=== PATIENT | male | born 1970 | race Caucasian/White ===

== ENCOUNTER 2018-11-03 15:37 | Inpatient (IN) | payer OTHER, SELFPAY ==
[2018-11-03] VITALS (38 sets, daily range): BP systolic 117–153; BP diastolic 60–83; PULSE 48–83; RESP 14–24; TEMP 36.8–37; O2SAT 89–99
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
[2018-11-03 15:51] LABS: Abs Immature Grans 0.02 k/cumm (0.0-0.09); Absolute Basophil Count 0.02 k/cumm (0.0-0.2); Absolute Eosinophil Count 0.05 k/cumm (0.0-0.7); Absolute Lymphocyte Count 1.07 k/cumm (1.2-3.4); Absolute Monocyte Count 0.55 k/cumm (0.11-0.7); Absolute Neutrophil Count 5.69 k/cumm (1.2-6.7); Basophils % 0.3; Eosinophils % 0.7; HCT 41.4 % (40.0-50.0); HGB 14.2 g/dL (13.5-17.5); Immature Grans % 0.3; Lymphocytes % 14.5; Mean Corp. HGB Concentration 34.3 g/dL (32.0-36.0); Mean Corpuscular Hemoglobin 31.6 pg (27.0-33.0); Mean Platelet Volume 10.4 fL (8.0-11.0); Monocytes % 7.4; Neutrophils % 76.8; Platelet Count 193 x1000/uL (130-400); RBC Distribution Width 12.7 % (11.8-14.1)
[2018-11-03] MEDS: Omnipaque 350 MG/ML 100 ML BTL IJ (15:54)
[2018-11-03 16:09] LABS: PTT Activated 22.4 sec (21.0-31.4); Prothrombin Time 10.1 sec (9.3-11.0)
[2018-11-03 16:11] LABS: ALT 36 U/L (12-78); AST 33 U/L (15-37); Alkaline Phosphatase 72 U/L (46-116); BUN 14 mg/dL (7-18); Bilirubin, Total 0.7 mg/dL (0.2-1.0); Calcium 8.9 mg/dL (8.5-10.1); Chloride 103 mmol/L (98-107); Glucose 111 mg/dL (70-100); Lipase 117 U/L (73-393); Magnesium 1.9 mg/dL (1.8-2.4); Potassium 4.2 mmol/L (3.5-5.1); Sodium 139 mmol/L (136-145); Total Protein 7.4 g/dL (6.4-8.2)
[2018-11-03] MEDS: PIPERACILLIN/TAZO 4.5 GM in Normal Saline 100 ML IVPB (16:27)
[2018-11-03] MEDS: fentaNYL 100 MCG/2 ML VIAL 75 MCG IVP (16:27)
[2018-11-03] MEDS: Ketorolac 30 MG/ML VIAL IVP (19:42)
[2018-11-03] MEDS: Normal Saline Flush 10 ML SYR IVP (19:42)
[2018-11-03] MEDS: Acetaminophen 325 MG TAB 650 MG PO (19:43)
[2018-11-03] MEDS: CIPROFLOXACIN 400 MG/200 ML BAG 200 MG IVPB (19:43)
[2018-11-03] MEDS: Lactated Ringers 1,000 ML 75 ML IV (19:44)
[2018-11-03] MEDS: metroNIDAZOLE 500 MG/100 ML BAG 100 MG IVPB (20:58)
[2018-11-04] VITALS (13 sets, daily range): BP systolic 98–141; BP diastolic 49–79; PULSE 59–84; RESP 16–26; TEMP 36.5–37.9; O2SAT 89–98
[2018-11-04] MEDS: Ketorolac 30 MG/ML VIAL IVP ×3 (02:12→16:08)
[2018-11-04] MEDS: Acetaminophen 325 MG TAB 650 MG PO ×2 (02:13→09:28)
[2018-11-04] MEDS: metroNIDAZOLE 500 MG/100 ML BAG 100 MG IVPB ×4 (03:27→22:00)
[2018-11-04] MEDS: CIPROFLOXACIN 400 MG/200 ML BAG 200 MG IVPB ×2 (06:58→17:59)
[2018-11-04 08:27] LABS: Abs Immature Grans 0.04 k/cumm (0.0-0.09); Absolute Basophil Count 0.01 k/cumm (0.0-0.2); Absolute Lymphocyte Count 1.21 k/cumm (1.2-3.4); Absolute Monocyte Count 0.94 k/cumm (0.11-0.7); Basophils % 0.1; HCT 42.9 % (40.0-50.0); HGB 14.3 g/dL (13.5-17.5); Immature Grans % 0.3; Lymphocytes % 8.6; Mean Corp. HGB Concentration 33.3 g/dL (32.0-36.0); Mean Corpuscular Hemoglobin 30.7 pg (27.0-33.0); Mean Corpuscular Volume 92.1 fL (80-95); Mean Platelet Volume 10.5 fL (8.0-11.0); Monocytes % 6.7; Neutrophils % 84.3; Platelet Count 192 x1000/uL (130-400); RBC 4.66 m/cumm (4.50-6.00); White Blood Cell Count 14.06 k/cumm (4.4-10.8)
[2018-11-04 08:32] LABS: Absolute Neutrophil Count 11.85 k/cumm (1.2-6.7)
[2018-11-04] MEDS: Normal Saline Flush 10 ML SYR IVP ×4 (09:27→18:15)
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
[2018-11-04] MEDS: Lactated Ringers 1,000 ML 75 ML IV (13:19)
--- NOTE | 2018-11-04 16:07 | PDOC.CMIN ---
Care Management Initial Assess REASON FOR HOSPITALIZATION:: Pneumoperitoneum PAST MEDICAL HISTORY/PAST SURGICAL HISTORY:: None given PREVIOUS FUNCTIONAL STATUS/SOCIAL/FAMILY SUPPORTS:: Independent at baseline. Lives with his , Herminia, in [facility]. Works at a [employer]. CURRENT FUNCTIONAL STATUS:: Ambulating independently. ADVANCE DIRECTIVES:: None on file Has patient been provided with information about the portal?: No Did the patient sign up for the portal?: No CODE STATUS:: Full Code INSURANCE COVERAGE / FINANCIAL ISSUES:: [facility] CURRENT HOME/COMMUNITY SERVICES/EQUIPMENT:: None at this time PRIMARY CARE PHYSICIAN:: Out of the area POTENTIAL DISCHARGE NEEDS:: Follow up appointment with PCP PATIENT/FAMILY EDUCATION NEEDS:: Discharge instructions ANTICIPATED BARRIERS TO DISCHARGE:: None identified TRANSPORTATION:: , Herminia, will transport PLAN:: Edinson will return home when medically cleared for discharge. CM will continue to follow and address any service needs prior to discharge. Readmission - Within the Past 30 Days Yes or No: Y
[2018-11-04] MEDS: HYDROcodone 5/Acetaminophen 325 TAB PO (17:57)
--- NOTE | 2018-11-04 18:08 | DI.RAD_ITS ---
SYMPTOM/DIAGNOSIS: ABD AND CHEST PAIN FLAT AND UPRIGHT ABDOMEN, PA CHEST: The lungs are not well inflated. There is minimal basilar atelectasis. The heart size is at the upper limits of normal in size. No pneumothorax is seen. There is free air seen beneath both diaphragms, increasing when compared with the previous CT. There is some air seen in the hepatic flexure of the colon. There is no dilated small bowel. IMPRESSION: Increasing amount of free air. No bowel dilatation.
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
--- NOTE | 2018-11-04 20:03 | W.PM.PROGNOT ---
Date of Service Date of service: 11/04/18 Time of Service: 20:03 Assessment and Plan (1) Free intraperitoneal air: Current visit: Yes Status: Acute The patient's condition has worsened with increased pain and new fever. Acute abdominal series shows significant increased free air Advised laparotomy with repair/resection of perforated bowel, possible ostomy. Risks per consent. He agrees to proceed. Subjective Interval history since last seen: This evening after taking in clears liquids at about 1800, patient had increase in LLQ pain that radiated to his chest, back and shoulder. Pain worse than earlier today. Exam Narrative Exam Narrative: ALert Abdomen with generalized tenderness, moderately distended. Objective Objective Clinical Data: Abnormal lab results 11/04/18 Range/Units 08:12 WBC 14.06 H D (4.4-10.8) k/cumm Absolute Neutrophils 11.85 H (1.2-6.7) k/cumm Absolute Monocytes 0.94 H (0.11-0.7) k/cumm Vital Signs Temperature 99.0 F 11/04/18 19:40 Temperature Source Tympanic 11/04/18 19:40 Pulse 83 11/04/18 19:40 Pulse Rhythm Regular 11/04/18 07:45 Pulse 83 11/03/18 18:40 Respiratory Rate 17 11/04/18 19:40 Respiratory Effort Non-Labored 11/04/18 07:45 Respiratory Depth Normal 11/04/18 07:45 Respiratory Pattern Normal 11/04/18 07:45 Blood Pressure 136/78 11/04/18 19:40 Blood Pressure Mean 85 11/03/18 18:30 Blood Pressure Position Sitting 11/03/18 15:36 Pulse Oximetry 94 L 11/04/18 19:40 Oxygen Delivery Method Room Air 11/04/18 19:40 Oxygen Flow Rate 0 11/04/18 19:40 Pain Level 3 11/04/18 19:40 Comment 11/04/18 18:29 Intake & Output 11/03/18 11/04/18 11/04/18 23:59 11:59 23:59 Intake Total 392.5 / 392.5 1307.50 / 1307.50 Output Total 450 / 450 900 / 1525 625 / 1525 Balance -57.5 / -57.5 407.50 / -217.50 -625 / -217.50 Weight 202 lb 13.204 oz Intake: IV 392.5 / 392.5 1307.50 / 1307.50 Output: Urine 450 / 450 900 / 1525 625 / 1525 Other: Urine Color Straw Light Giovana Dark Giovana Urine Appearance Clear Clear Clear Urine Odor Normal Normal Comment CCRN Marleni notified Voiding Methods Urinal Urinal Urinal Laboratory Results WBC 14.06 k/cumm (4.4-10.8) H D 11/04/18 08:12 RBC 4.66 m/cumm (4.50-6.00) 11/04/18 08:12 Hgb 14.3 g/dL (13.5-17.5) 11/04/18 08:12 Hct 42.9 % (40.0-50.0) 11/04/18 08:12 MCV 92.1 fL (80-95) 11/04/18 08:12 MCH 30.7 pg (27.0-33.0) 11/04/18 08:12 MCHC 33.3 g/dL (32.0-36.0) 11/04/18 08:12 RDW 13.0 % (11.8-14.1) 11/04/18 08:12 Plt Count 192 x1000/uL (130-400) 11/04/18 08:12 MPV 10.5 fL (8.0-11.0) 11/04/18 08:12 Immature Gran % 0.3 11/04/18 08:12 Neutrophils % 84.3 11/04/18 08:12 Lymphocytes % 8.6 11/04/18 08:12 Monocytes % 6.7 11/04/18 08:12 Eosinophils % 0.0 11/04/18 08:12 Basophils % 0.1 11/04/18 08:12 Absolute Neutrophils 11.85 k/cumm (1.2-6.7) H 11/04/18 08:12 Absolute Lymphocytes 1.21 k/cumm (1.2-3.4) 11/04/18 08:12 Absolute Monocytes 0.94 k/cumm (0.11-0.7) H 11/04/18 08:12 Absolute Eosinophils 0.00 k/cumm (0.0-0.7) 11/04/18 08:12 Absolute Basophils 0.01 k/cumm (0.0-0.2) 11/04/18 08:12 PT 10.1 sec (9.3-11.0) 11/03/18 15:43 INR 1.0 (0.9-1.1) 11/03/18 15:43 APTT 22.4 sec (21.0-31.4) 11/03/18 15:43 Sodium 139 mmol/L (136-145) 11/03/18 15:43 Potassium 4.2 mmol/L (3.5-5.1) 11/03/18 15:43 Chloride 103 mmol/L (98-107) 11/03/18 15:43 Carbon Dioxide 29.0 mmol/L (21.0-32.0) 11/03/18 15:43 Anion Gap 7.0 mmol/L (3-11) 11/03/18 15:43 BUN 14 mg/dL (7-18) 11/03/18 15:43 Creatinine 1.10 mg/dL (0.70-1.30) 11/03/18 15:43 Estimated GFR/1.73 m2 >= 60.00 (mL/min/1.73m2) 11/03/18 15:43 Glucose 111 mg/dL (70-100) H 11/03/18 15:43 Calcium 8.9 mg/dL (8.5-10.1) 11/03/18 15:43 Magnesium 1.9 mg/dL (1.8-2.4) 11/03/18 15:43 Total Bilirubin 0.7 mg/dL (0.2-1.0) 11/03/18 15:43 AST 33 U/L (15-37) 11/03/18 15:43 ALT 36 U/L (12-78) 11/03/18 15:43 Alkaline Phosphatase 72 U/L (46-116) 11/03/18 15:43 Total Protein 7.4 g/dL (6.4-8.2) 11/03/18 15:43 Albumin 4.0 g/dL (3.4-5.0) 11/03/18 15:43 Lipase 117 U/L (73-393) 11/03/18 15:43
[2018-11-04] MEDS: Lactated Ringers 1,000 ML 30 ML IV ×2 (20:40→22:00)
[2018-11-04] MEDS: Bupivacaine 0.25% Pres-Free 30 ML VIAL (22:20)
[2018-11-05] VITALS (12 sets, daily range): BP systolic 108–144; BP diastolic 64–76; PULSE 54–83; RESP 17–18; TEMP 36.6–37.3; O2SAT 93–98
[2018-11-05] MEDS: metroNIDAZOLE 500 MG/100 ML BAG 100 MG IVPB ×3 (04:56→20:01)
[2018-11-05] MEDS: Normal Saline Flush 10 ML SYR IVP ×5 (05:52→16:11)
[2018-11-05] MEDS: CIPROFLOXACIN 400 MG/200 ML BAG 200 MG IVPB ×2 (05:52→18:24)
[2018-11-05 07:43] LABS: Abs Immature Grans 0.03 k/cumm (0.0-0.09); Absolute Lymphocyte Count 0.52 k/cumm (1.2-3.4); Absolute Monocyte Count 0.63 k/cumm (0.11-0.7); Absolute Neutrophil Count 14.99 k/cumm (1.2-6.7); HCT 38.8 % (40.0-50.0); Immature Grans % 0.2; Lymphocytes % 3.2; Mean Corp. HGB Concentration 33.5 g/dL (32.0-36.0); Mean Corpuscular Hemoglobin 31.2 pg (27.0-33.0); Mean Platelet Volume 10.7 fL (8.0-11.0); Monocytes % 3.9; Neutrophils % 92.7; Platelet Count 162 x1000/uL (130-400); RBC 4.17 m/cumm (4.50-6.00); RBC Distribution Width 13.2 % (11.8-14.1); White Blood Cell Count 16.17 k/cumm (4.4-10.8)
[2018-11-05] MEDS: Ketorolac 30 MG/ML VIAL IVP ×3 (09:13→22:27)
--- NOTE | 2018-11-05 10:50 | W.PM.PROGNOT ---
Date of Service Date of service: 11/05/18 Time of Service: 10:51 Assessment and Plan (1) S/P laparotomy: Current visit: Yes Status: Acute Generally doing well NG removed, ice chips okay Ambulation encouraged Will leave Caldwell for patient comfort, can DC when he is ready or tomorrow am Add fluconazole for small bowel perforation, will monitor with telemetry Cultures pending Subjective Interval history since last seen: Pain is improved from yesterday Notes sudden pain in throat from NG Exam Narrative Exam Narrative: Appears uncomfortable Lungs CTA but poor effort Heart RRR Abdomen with dry dressing Objective Objective Clinical Data: Abnormal lab results 11/05/18 Range/Units 07:05 WBC 16.17 H (4.4-10.8) k/cumm RBC 4.17 L (4.50-6.00) m/cumm Hgb 13.0 L (13.5-17.5) g/dL Hct 38.8 L (40.0-50.0) % Absolute Neutrophils 14.99 H (1.2-6.7) k/cumm Absolute Lymphocytes 0.52 L (1.2-3.4) k/cumm Vital Signs Temperature 98.6 F 11/05/18 07:50 Temperature Source Tympanic 11/05/18 07:50 Pulse 76 11/05/18 07:50 Pulse Rhythm Regular 11/04/18 19:35 Pulse 83 11/03/18 18:40 Respiratory Rate 17 11/05/18 07:50 Respiratory Effort Non-Labored 11/04/18 19:35 Respiratory Depth Normal 11/04/18 19:35 Respiratory Pattern Normal 11/04/18 19:35 Blood Pressure 114/72 11/05/18 07:50 Blood Pressure Mean 85 11/03/18 18:30 Blood Pressure Position Sitting 11/03/18 15:36 Pulse Oximetry 93 L 11/05/18 09:40 Respiratory End-tidal CO2 42 11/04/18 23:16 Oxygen Delivery Method Room Air 11/05/18 09:40 Oxygen Flow Rate 0 11/05/18 09:40 Pain Level 10 11/05/18 09:13 Comment 11/04/18 18:29 Intake & Output 11/04/18 11/04/18 11/05/18 11:59 23:59 11:59 Intake Total 1307.50 / 2906.25 1598.75 / 2906.25 1370.833 / 1370.833 Output Total 2024 250 / 250 Balance 407.50 / 881.25 473.75 / 881.25 1120.833 / 1120.833 Intake: IV 1307.50 / 2786.25 1478.75 / 2786.25 1370.833 / 1370.833 Oral 120 / 120 Output: Urine 2024 [id number] 250 / 250 Other: Urine Color Light Giovana Light Giovana Dark Giovana Urine Appearance Clear Clear Clear Urine Odor Normal Strong Comment CCRN Marleni notified Emesis Description None Voiding Methods Urinal Urinal Laboratory Results WBC 16.17 k/cumm (4.4-10.8) H 11/05/18 07:05 RBC 4.17 m/cumm (4.50-6.00) L 11/05/18 07:05 Hgb 13.0 g/dL (13.5-17.5) L 11/05/18 07:05 Hct 38.8 % (40.0-50.0) L 11/05/18 07:05 MCV 93.0 fL (80-95) 11/05/18 07:05 MCH 31.2 pg (27.0-33.0) 11/05/18 07:05 MCHC 33.5 g/dL (32.0-36.0) 11/05/18 07:05 RDW 13.2 % (11.8-14.1) 11/05/18 07:05 Plt Count 162 x1000/uL (130-400) 11/05/18 07:05 MPV 10.7 fL (8.0-11.0) 11/05/18 07:05 Immature Gran % 0.2 11/05/18 07:05 Neutrophils % 92.7 11/05/18 07:05 Lymphocytes % 3.2 11/05/18 07:05 Monocytes % 3.9 11/05/18 07:05 Eosinophils % 0.0 11/05/18 07:05 Basophils % 0.0 11/05/18 07:05 Absolute Neutrophils 14.99 k/cumm (1.2-6.7) H 11/05/18 07:05 Absolute Lymphocytes 0.52 k/cumm (1.2-3.4) L 11/05/18 07:05 Absolute Monocytes 0.63 k/cumm (0.11-0.7) 11/05/18 07:05 Absolute Eosinophils 0.00 k/cumm (0.0-0.7) 11/05/18 07:05 Absolute Basophils 0.00 k/cumm (0.0-0.2) 11/05/18 07:05 PT 10.1 sec (9.3-11.0) 11/03/18 15:43 INR 1.0 (0.9-1.1) 11/03/18 15:43 APTT 22.4 sec (21.0-31.4) 11/03/18 15:43 Sodium 139 mmol/L (136-145) 11/03/18 15:43 Potassium 4.2 mmol/L (3.5-5.1) 11/03/18 15:43 Chloride 103 mmol/L (98-107) 11/03/18 15:43 Carbon Dioxide 29.0 mmol/L (21.0-32.0) 11/03/18 15:43 Anion Gap 7.0 mmol/L (3-11) 11/03/18 15:43 BUN 14 mg/dL (7-18) 11/03/18 15:43 Creatinine 1.10 mg/dL (0.70-1.30) 11/03/18 15:43 Estimated GFR/1.73 m2 >= 60.00 (mL/min/1.73m2) 11/03/18 15:43 Glucose 111 mg/dL (70-100) H 11/03/18 15:43 Calcium 8.9 mg/dL (8.5-10.1) 11/03/18 15:43 Magnesium 1.9 mg/dL (1.8-2.4) 11/03/18 15:43 Total Bilirubin 0.7 mg/dL (0.2-1.0) 11/03/18 15:43 AST 33 U/L (15-37) 11/03/18 15:43 ALT 36 U/L (12-78) 11/03/18 15:43 Alkaline Phosphatase 72 U/L (46-116) 11/03/18 15:43 Total Protein 7.4 g/dL (6.4-8.2) 11/03/18 15:43 Albumin 4.0 g/dL (3.4-5.0) 11/03/18 15:43 Lipase 117 U/L (73-393) 11/03/18 15:43
[2018-11-05] MEDS: FLUCONAZOLE 200 MG/100 ML BAG 100 MG IVPB (11:31)
[2018-11-05] MEDS: HYDROcodone 5/Acetaminophen 325 TAB PO ×3 (11:31→20:01)
--- NOTE | 2018-11-05 13:09 | INITIAL_ITS ---
Care Management Initial Assess REASON FOR HOSPITALIZATION:: Pneumoperitoneum PAST MEDICAL HISTORY/PAST SURGICAL HISTORY:: None given PREVIOUS FUNCTIONAL STATUS/SOCIAL/FAMILY SUPPORTS:: Independent at baseline. Lives with his , Herminia, in [facility]. Works at a [employer]. CURRENT FUNCTIONAL STATUS:: Ambulating independently. ADVANCE DIRECTIVES:: None on file Has patient been provided with information about the portal?: No Did the patient sign up for the portal?: No CODE STATUS:: Full Code INSURANCE COVERAGE / FINANCIAL ISSUES:: [facility] CURRENT HOME/COMMUNITY SERVICES/EQUIPMENT:: None at this time PRIMARY CARE PHYSICIAN:: Out of the area POTENTIAL DISCHARGE NEEDS:: Follow up appointment with PCP PATIENT/FAMILY EDUCATION NEEDS:: Discharge instructions ANTICIPATED BARRIERS TO DISCHARGE:: None identified TRANSPORTATION:: , Herminia, will transport PLAN:: Edinson will return home when medically cleared for discharge. CM will continue to follow and address any service needs prior to discharge. Readmission - Within the Past 30 Days Yes or No: Y
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
[2018-11-06] VITALS (10 sets, daily range): BP systolic 130–142; BP diastolic 68–78; PULSE 58–80; RESP 17–18; TEMP 36.5–37.6; O2SAT 93–96
[2018-11-06] MEDS: HYDROcodone 5/Acetaminophen 325 TAB PO ×3 (00:21→13:25)
[2018-11-06] MEDS: Ketorolac 30 MG/ML VIAL IVP ×3 (04:05→20:18)
[2018-11-06] MEDS: metroNIDAZOLE 500 MG/100 ML BAG 100 MG IVPB (04:05)
[2018-11-06] MEDS: CIPROFLOXACIN 400 MG/200 ML BAG 200 MG IVPB (05:27)
[2018-11-06 07:41] LABS: Abs Immature Grans 0.02 k/cumm (0.0-0.09); Absolute Basophil Count 0.01 k/cumm (0.0-0.2); Absolute Lymphocyte Count 1.09 k/cumm (1.2-3.4); Absolute Monocyte Count 0.86 k/cumm (0.11-0.7); Basophils % 0.1; HGB 11.3 g/dL (13.5-17.5); Immature Grans % 0.2; Lymphocytes % 10.6; Mean Corp. HGB Concentration 32.3 g/dL (32.0-36.0); Mean Corpuscular Hemoglobin 30.6 pg (27.0-33.0); Mean Corpuscular Volume 94.9 fL (80-95); Mean Platelet Volume 10.9 fL (8.0-11.0); Monocytes % 8.4; Neutrophils % 79.7; Platelet Count 162 x1000/uL (130-400); RBC 3.69 m/cumm (4.50-6.00); RBC Distribution Width 13.4 % (11.8-14.1); White Blood Cell Count 10.29 k/cumm (4.4-10.8)
--- NOTE | 2018-11-06 08:22 | W.PM.PROGNOT ---
Date of Service Date of service: 11/06/18 Time of Service: 08:22 Assessment and Plan (1) S/P laparotomy: Current visit: Yes Status: Acute POD #2 DIET- NPO; Ice chips only, tolerating this well. (-) BM or Flatus Hypoactive BS Pain is currently tolerable with ordered meds Encouraged ambulation and sitting in the chair throughout the day. (2) Abdominal wall contusion: Current visit: Yes Status: Acute Subjective Interval history since last seen: Feeling okay today. I can feel gas moving. No Flatus or BM. Tolerating ice chips well. Ambulating as tolerated. Exam Const General: cooperative, healthy appearing and comfortable Orientation: alert and oriented x3 Resp Effort & Inspection: normal respiratory effort, no audible wheezes and no cough Auscultation: clear to auscultation bilaterally GI Inspection: normal to inspection, non-distended and incision (midline incision ) Palpation: soft, no guarding and tender (generalized) Auscultation: hypoactive bowel sounds Objective Objective Clinical Data: Abnormal lab results 11/06/18 Range/Units 07:05 RBC 3.69 L (4.50-6.00) m/cumm Hgb 11.3 L (13.5-17.5) g/dL Hct 35.0 L (40.0-50.0) % Absolute Neutrophils 8.20 H (1.2-6.7) k/cumm Absolute Lymphocytes 1.09 L (1.2-3.4) k/cumm Absolute Monocytes 0.86 H (0.11-0.7) k/cumm Vital Signs Temperature 36.6 C 11/06/18 04:00 Temperature Source Tympanic 11/06/18 04:00 Pulse 58 L 11/06/18 07:02 Pulse Rhythm Regular 11/05/18 19:40 Pulse 83 11/03/18 18:40 Respiratory Rate 18 11/06/18 04:00 Respiratory Effort Non-Labored 11/05/18 19:40 Respiratory Depth Normal 11/05/18 19:40 Respiratory Pattern Normal 11/05/18 19:40 Blood Pressure 135/78 11/06/18 04:00 Blood Pressure Mean 85 11/03/18 18:30 Blood Pressure Position Sitting 11/03/18 15:36 Pulse Oximetry 95 11/06/18 04:00 Respiratory End-tidal CO2 42 11/04/18 23:16 Oxygen Delivery Method Room Air 11/06/18 04:00 Oxygen Flow Rate 0 11/06/18 04:00 Pain Level 3 11/06/18 08:17 Comment 11/04/18 18:29 Intake & Output 11/05/18 11/06/18 11/06/18 18:59 06:59 18:59 Intake Total 1309.167 / 3465.417 2156.25 / 3465.417 300 / 300 Output Total 1300 / 2200 900 / 2200 Balance 9.167 / 1936.734 3153.25 / 1265.417 300 / 300 Intake: IV 1059.167 / 3215.417 2156.25 / 3215.417 300 / 300 Oral 250 / 250 Output: Gastric Drainage 50 / 50 Right Nare 50 / 50 Urine 1250 / 2150 900 / 2150 Other: Urine Color Dark Giovana Dark Giovana Urine Appearance Clear Hematuria Clots Urine Odor None Comment A few small clots noted in urine palacios D/C Voiding Methods Urinal Urinal Laboratory Results WBC 10.29 k/cumm (4.4-10.8) D 11/06/18 07:05 RBC 3.69 m/cumm (4.50-6.00) L 11/06/18 07:05 Hgb 11.3 g/dL (13.5-17.5) L 11/06/18 07:05 Hct 35.0 % (40.0-50.0) L 11/06/18 07:05 MCV 94.9 fL (80-95) 11/06/18 07:05 MCH 30.6 pg (27.0-33.0) 11/06/18 07:05 MCHC 32.3 g/dL (32.0-36.0) 11/06/18 07:05 RDW 13.4 % (11.8-14.1) 11/06/18 07:05 Plt Count 162 x1000/uL (130-400) 11/06/18 07:05 MPV 10.9 fL (8.0-11.0) 11/06/18 07:05 Immature Gran % 0.2 11/06/18 07:05 Neutrophils % 79.7 11/06/18 07:05 Lymphocytes % 10.6 11/06/18 07:05 Monocytes % 8.4 11/06/18 07:05 Eosinophils % 1.0 11/06/18 07:05 Basophils % 0.1 11/06/18 07:05 Absolute Neutrophils 8.20 k/cumm (1.2-6.7) H 11/06/18 07:05 Absolute Lymphocytes 1.09 k/cumm (1.2-3.4) L 11/06/18 07:05 Absolute Monocytes 0.86 k/cumm (0.11-0.7) H 11/06/18 07:05 Absolute Eosinophils 0.10 k/cumm (0.0-0.7) 11/06/18 07:05 Absolute Basophils 0.01 k/cumm (0.0-0.2) 11/06/18 07:05 PT 10.1 sec (9.3-11.0) 11/03/18 15:43 INR 1.0 (0.9-1.1) 11/03/18 15:43 APTT 22.4 sec (21.0-31.4) 11/03/18 15:43 Sodium 139 mmol/L (136-145) 11/03/18 15:43 Potassium 4.2 mmol/L (3.5-5.1) 11/03/18 15:43 Chloride 103 mmol/L (98-107) 11/03/18 15:43 Carbon Dioxide 29.0 mmol/L (21.0-32.0) 11/03/18 15:43 Anion Gap 7.0 mmol/L (3-11) 11/03/18 15:43 BUN 14 mg/dL (7-18) 11/03/18 15:43 Creatinine 1.10 mg/dL (0.70-1.30) 11/03/18 15:43 Estimated GFR/1.73 m2 >= 60.00 (mL/min/1.73m2) 11/03/18 15:43 Glucose 111 mg/dL (70-100) H 11/03/18 15:43 Calcium 8.9 mg/dL (8.5-10.1) 11/03/18 15:43 Magnesium 1.9 mg/dL (1.8-2.4) 11/03/18 15:43 Total Bilirubin 0.7 mg/dL (0.2-1.0) 11/03/18 15:43 AST 33 U/L (15-37) 11/03/18 15:43 ALT 36 U/L (12-78) 11/03/18 15:43 Alkaline Phosphatase 72 U/L (46-116) 11/03/18 15:43 Total Protein 7.4 g/dL (6.4-8.2) 11/03/18 15:43 Albumin 4.0 g/dL (3.4-5.0) 11/03/18 15:43 Lipase 117 U/L (73-393) 11/03/18 15:43
[2018-11-06 09:03] LABS: Anion Gap 7.1 mmol/L (3-11); CO2 29.9 mmol/L (21.0-32.0); Chloride 103 mmol/L (98-107); Magnesium 2.1 mg/dL (1.8-2.4); Potassium 4.1 mmol/L (3.5-5.1); Sodium 140 mmol/L (136-145)
[2018-11-06 09:06] LABS: Troponin I < 0.05 ng/mL (0.00-0.06)
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
[2018-11-06] MEDS: PIPERACILLIN/TAZO 3.375 GM in Normal Saline 50 ML IVPB ×3 (10:17→21:29)
--- NOTE | 2018-11-06 10:51 | W.PM.PROGNOT ---
Date of Service Date of service: 11/06/18 Time of Service: 10:51 Assessment and Plan (1) S/P laparotomy: Current visit: Yes Status: Acute A\\ POD #2 s/p ex-lap for perforated small bowel Passing flatus No N/V P\\ Start Clears and advanced to post op soft low fiber diet as tolerated Continue with ambulation Continue ISP Disposition- home once eating and has had a BM (2) V-tach: Current visit: Yes Status: Chronic A\\ One episode. Appreciate Dr. Saldivar seeing the patient on short notice Troponin normal Most likely due to interaction between Cipro and Diflucan Electrolytes normal P\\ D/C Cipro and Flagyl. Start Zosyn D/C fluconazole If he has another episode then will do ECHO Subjective Interval history since last seen: Mr. Luna is sitting in the chair comfortable. No chest pain, no nausea or Vomiting. he tells me he started passing flatus this am. Exam Const General: cooperative, comfortable and no acute distress Orientation: alert and oriented x3 HENMT Head: normocephalic and atraumatic Resp Effort & Inspection: normal respiratory effort Auscultation: clear to auscultation bilaterally Cardio Rate: regular rate Rhythm: regular rhythm Heart Sounds: no gallops, no murmurs and no rubs GI Inspection: incision (c/d/i) Palpation: soft and tender (appropriatly tender to palpation. No guarding or rebound) Auscultation: normal bowel sounds Objective Objective Clinical Data: Abnormal lab results 11/06/18 Range/Units 07:05 RBC 3.69 L (4.50-6.00) m/cumm Hgb 11.3 L (13.5-17.5) g/dL Hct 35.0 L (40.0-50.0) % Absolute Neutrophils 8.20 H (1.2-6.7) k/cumm Absolute Lymphocytes 1.09 L (1.2-3.4) k/cumm Absolute Monocytes 0.86 H (0.11-0.7) k/cumm Vital Signs Temperature 97.7 F 11/06/18 07:48 Temperature Source Tympanic 11/06/18 07:48 Pulse 58 L 11/06/18 07:48 Pulse Rhythm Regular 11/06/18 08:54 Pulse 83 11/03/18 18:40 Respiratory Rate 17 11/06/18 07:48 Respiratory Effort Non-Labored 11/06/18 08:54 Respiratory Depth Normal 11/06/18 08:54 Respiratory Pattern Normal 11/06/18 08:54 Blood Pressure 130/78 11/06/18 07:48 Blood Pressure Mean 85 11/03/18 18:30 Blood Pressure Position Sitting 11/03/18 15:36 Pulse Oximetry 94 L 11/06/18 07:48 Respiratory End-tidal CO2 42 11/04/18 23:16 Oxygen Delivery Method Room Air 11/06/18 07:48 Oxygen Flow Rate 0 11/06/18 07:48 Pain Level 2 11/06/18 10:17 Comment 11/04/18 18:29 Intake & Output 11/05/18 11/05/18 11/06/18 11:59 23:59 11:59 Intake Total 1400.833 / 3761.250 2360.417 / 3761.250 1175 / 1175 Output Total 550 / 1550 1000 / 1550 900 / 900 Balance 850.833 / 2211.250 1360.417 / 2211.250 275 / 275 Intake: IV 1400.833 / 3511.250 2110.417 / 3511.250 1175 / 1175 Oral 250 / 250 Output: Gastric Drainage 50 / 50 Right Nare 50 / 50 Urine 500 / 1500 1000 / 1500 900 / 900 Other: Urine Color Light Giovana Dark Giovana Dark Giovana Urine Appearance Clear Clear Hematuria Clots Urine Odor None Comment palacios D/C 1 small clot noted Voiding Methods Urinal Urinal Laboratory Results WBC 10.29 k/cumm (4.4-10.8) D 11/06/18 07:05 RBC 3.69 m/cumm (4.50-6.00) L 11/06/18 07:05 Hgb 11.3 g/dL (13.5-17.5) L 11/06/18 07:05 Hct 35.0 % (40.0-50.0) L 11/06/18 07:05 MCV 94.9 fL (80-95) 11/06/18 07:05 MCH 30.6 pg (27.0-33.0) 11/06/18 07:05 MCHC 32.3 g/dL (32.0-36.0) 11/06/18 07:05 RDW 13.4 % (11.8-14.1) 11/06/18 07:05 Plt Count 162 x1000/uL (130-400) 11/06/18 07:05 MPV 10.9 fL (8.0-11.0) 11/06/18 07:05 Immature Gran % 0.2 11/06/18 07:05 Neutrophils % 79.7 11/06/18 07:05 Lymphocytes % 10.6 11/06/18 07:05 Monocytes % 8.4 11/06/18 07:05 Eosinophils % 1.0 11/06/18 07:05 Basophils % 0.1 11/06/18 07:05 Absolute Neutrophils 8.20 k/cumm (1.2-6.7) H 11/06/18 07:05 Absolute Lymphocytes 1.09 k/cumm (1.2-3.4) L 11/06/18 07:05 Absolute Monocytes 0.86 k/cumm (0.11-0.7) H 11/06/18 07:05 Absolute Eosinophils 0.10 k/cumm (0.0-0.7) 11/06/18 07:05 Absolute Basophils 0.01 k/cumm (0.0-0.2) 11/06/18 07:05 PT 10.1 sec (9.3-11.0) 11/03/18 15:43 INR 1.0 (0.9-1.1) 11/03/18 15:43 APTT 22.4 sec (21.0-31.4) 11/03/18 15:43 Sodium 140 mmol/L (136-145) 11/06/18 07:05 Potassium 4.1 mmol/L (3.5-5.1) 11/06/18 07:05 Chloride 103 mmol/L (98-107) 11/06/18 07:05 Carbon Dioxide 29.9 mmol/L (21.0-32.0) 11/06/18 07:05 Anion Gap 7.1 mmol/L (3-11) 11/06/18 07:05 BUN 14 mg/dL (7-18) 11/03/18 15:43 Creatinine 1.10 mg/dL (0.70-1.30) 11/03/18 15:43 Estimated GFR/1.73 m2 >= 60.00 (mL/min/1.73m2) 11/03/18 15:43 Glucose 111 mg/dL (70-100) H 11/03/18 15:43 Calcium 8.9 mg/dL (8.5-10.1) 11/03/18 15:43 Magnesium 2.1 mg/dL (1.8-2.4) 11/06/18 07:05 Total Bilirubin 0.7 mg/dL (0.2-1.0) 11/03/18 15:43 AST 33 U/L (15-37) 11/03/18 15:43 ALT 36 U/L (12-78) 11/03/18 15:43 Alkaline Phosphatase 72 U/L (46-116) 11/03/18 15:43 Troponin I < 0.05 ng/mL (0.00-0.06) 11/06/18 07:05 Total Protein 7.4 g/dL (6.4-8.2) 11/03/18 15:43 Albumin 4.0 g/dL (3.4-5.0) 11/03/18 15:43 Lipase 117 U/L (73-393) 11/03/18 15:43
--- NOTE | 2018-11-06 15:18 | W.PM.PROGNOT ---
Date of Service Date of service: 11/06/18 Time of Service: 15:18 Assessment and Plan (1) S/P laparotomy: Current visit: Yes Status: Acute A\\ Doing well. Tolerating a soft diet P\\ Continue with current care Disposition- Home once medically stable Subjective Interval history since last seen: Mr. Luna is resting. He is doing well. Pain is well controlled. He got a soft diet and did well with that. He has had several small loose BM's. He is still passing flatus. Exam GI Inspection: abdominal wall ecchymosis Palpation: soft and tender (appropriate along the incision) Auscultation: normal bowel sounds Objective Objective Clinical Data: Abnormal lab results 11/06/18 Range/Units 07:05 RBC 3.69 L (4.50-6.00) m/cumm Hgb 11.3 L (13.5-17.5) g/dL Hct 35.0 L (40.0-50.0) % Absolute Neutrophils 8.20 H (1.2-6.7) k/cumm Absolute Lymphocytes 1.09 L (1.2-3.4) k/cumm Absolute Monocytes 0.86 H (0.11-0.7) k/cumm Vital Signs Temperature 98.8 F 11/06/18 11:22 Temperature Source Tympanic 11/06/18 11:22 Pulse 65 11/06/18 11:22 Pulse Rhythm Regular 11/06/18 08:54 Pulse 83 11/03/18 18:40 Respiratory Rate 17 11/06/18 11:22 Respiratory Effort Non-Labored 11/06/18 08:54 Respiratory Depth Normal 11/06/18 08:54 Respiratory Pattern Normal 11/06/18 08:54 Blood Pressure 136/70 11/06/18 11:22 Blood Pressure Mean 85 11/03/18 18:30 Blood Pressure Position Sitting 11/03/18 15:36 Pulse Oximetry 94 L 11/06/18 11:22 Respiratory End-tidal CO2 42 11/04/18 23:16 Oxygen Delivery Method Room Air 11/06/18 11:22 Oxygen Flow Rate 0 11/06/18 11:22 Pain Level 2 11/06/18 13:25 Comment 11/04/18 18:29 Intake & Output 11/05/18 11/06/18 11/06/18 23:59 11:59 23:59 Intake Total 2360.417 / 3761.250 1175 / 2460.833 1285.833 / 2460.833 Output Total 1000 / 1550 900 / 1100 200 / 1100 Balance 1360.417 / 2211.250 275 / 8727.227 1483.833 / 1360.833 Intake: IV 2110.417 / 3511.250 1175 / 2220.833 1045.833 / 2220.833 Oral 250 / 250 240 / 240 Output: Urine 1000 / 1500 900 / 1100 200 / 1100 Other: Urine Color Dark Giovana Dark Giovana Dark Giovana Urine Appearance Clear Hematuria Clots Urine Odor None Comment palacios D/C 1 small clot noted Stool Size Small Stool Characteristics Soft Voiding Methods Urinal Urinal Toilet Laboratory Results WBC 10.29 k/cumm (4.4-10.8) D 11/06/18 07:05 RBC 3.69 m/cumm (4.50-6.00) L 11/06/18 07:05 Hgb 11.3 g/dL (13.5-17.5) L 11/06/18 07:05 Hct 35.0 % (40.0-50.0) L 11/06/18 07:05 MCV 94.9 fL (80-95) 11/06/18 07:05 MCH 30.6 pg (27.0-33.0) 11/06/18 07:05 MCHC 32.3 g/dL (32.0-36.0) 11/06/18 07:05 RDW 13.4 % (11.8-14.1) 11/06/18 07:05 Plt Count 162 x1000/uL (130-400) 11/06/18 07:05 MPV 10.9 fL (8.0-11.0) 11/06/18 07:05 Immature Gran % 0.2 11/06/18 07:05 Neutrophils % 79.7 11/06/18 07:05 Lymphocytes % 10.6 11/06/18 07:05 Monocytes % 8.4 11/06/18 07:05 Eosinophils % 1.0 11/06/18 07:05 Basophils % 0.1 11/06/18 07:05 Absolute Neutrophils 8.20 k/cumm (1.2-6.7) H 11/06/18 07:05 Absolute Lymphocytes 1.09 k/cumm (1.2-3.4) L 11/06/18 07:05 Absolute Monocytes 0.86 k/cumm (0.11-0.7) H 11/06/18 07:05 Absolute Eosinophils 0.10 k/cumm (0.0-0.7) 11/06/18 07:05 Absolute Basophils 0.01 k/cumm (0.0-0.2) 11/06/18 07:05 PT 10.1 sec (9.3-11.0) 11/03/18 15:43 INR 1.0 (0.9-1.1) 11/03/18 15:43 APTT 22.4 sec (21.0-31.4) 11/03/18 15:43 Sodium 140 mmol/L (136-145) 11/06/18 07:05 Potassium 4.1 mmol/L (3.5-5.1) 11/06/18 07:05 Chloride 103 mmol/L (98-107) 11/06/18 07:05 Carbon Dioxide 29.9 mmol/L (21.0-32.0) 11/06/18 07:05 Anion Gap 7.1 mmol/L (3-11) 11/06/18 07:05 BUN 14 mg/dL (7-18) 11/03/18 15:43 Creatinine 1.10 mg/dL (0.70-1.30) 11/03/18 15:43 Estimated GFR/1.73 m2 >= 60.00 (mL/min/1.73m2) 11/03/18 15:43 Glucose 111 mg/dL (70-100) H 11/03/18 15:43 Calcium 8.9 mg/dL (8.5-10.1) 11/03/18 15:43 Magnesium 2.1 mg/dL (1.8-2.4) 11/06/18 07:05 Total Bilirubin 0.7 mg/dL (0.2-1.0) 11/03/18 15:43 AST 33 U/L (15-37) 11/03/18 15:43 ALT 36 U/L (12-78) 11/03/18 15:43 Alkaline Phosphatase 72 U/L (46-116) 11/03/18 15:43 Troponin I < 0.05 ng/mL (0.00-0.06) 11/06/18 07:05 Total Protein 7.4 g/dL (6.4-8.2) 11/03/18 15:43 Albumin 4.0 g/dL (3.4-5.0) 11/03/18 15:43 Lipase 117 U/L (73-393) 11/03/18 15:43
[2018-11-06] MEDS: Normal Saline Flush 10 ML SYR IVP ×2 (15:52→21:30)
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
[2018-11-07 04:04] VITALS: BP 146/82; PULSE 67; RESP 16; TEMP 37.5; O2SAT 91
[2018-11-07] MEDS: PIPERACILLIN/TAZO 3.375 GM in Normal Saline 50 ML IVPB ×2 (04:06→09:49)
[2018-11-07] MEDS: Normal Saline Flush 10 ML SYR IVP ×2 (04:06→09:49)
[2018-11-07 07:00] VITALS: PULSE 63
--- NOTE | 2018-11-07 07:14 | W.PM.PROGNOT ---
Date of Service Date of service: 11/07/18 Time of Service: 07:14 Assessment and Plan (1) Perforated abdominal viscus: Current visit: Yes Status: Acute POD #3 s/p exploratory laparotomy with small bowel perforation repair. DIET- Tolerating soft, post op diet. RESP- Using incentive spirometer frequently. ACTIVITY- Ambulating independently in the hallway. (+) BM Patient may shower. Disposition- D/C home once medically cleared. (2) Nonsustained ventricular tachycardia: Current visit: Yes Status: Acute On Tele. Subjective Interval history since last seen: Arrive with Mr. Luna ambulating in the hallway. He reports that his pain is being pretty well controlled. (+) BMs last night and this morning. He is currently tolerating a post-op diet without any difficulty. Denies any nausea or vomiting. Exam Const General: cooperative, healthy appearing and comfortable Orientation: alert and oriented x3 Resp Effort & Inspection: normal respiratory effort, no audible wheezes and no cough GI Inspection: normal to inspection and incision (Midline. Dressing in place.) Palpation: soft, no guarding and tender Auscultation: normal bowel sounds Objective Objective Clinical Data: Abnormal lab results 11/06/18 Range/Units 07:05 RBC 3.69 L (4.50-6.00) m/cumm Hgb 11.3 L (13.5-17.5) g/dL Hct 35.0 L (40.0-50.0) % Absolute Neutrophils 8.20 H (1.2-6.7) k/cumm Absolute Lymphocytes 1.09 L (1.2-3.4) k/cumm Absolute Monocytes 0.86 H (0.11-0.7) k/cumm Vital Signs Temperature 37.5 C 11/07/18 04:04 Temperature Source Tympanic 11/07/18 04:04 Pulse 67 11/07/18 04:04 Pulse Rhythm Regular 11/06/18 23:40 Pulse 83 11/03/18 18:40 Respiratory Rate 16 11/07/18 04:04 Respiratory Effort 11/06/18 23:40 Respiratory Depth Shallow 11/06/18 23:40 Respiratory Pattern Normal 11/06/18 23:40 Blood Pressure 146/82 H 11/07/18 04:04 Blood Pressure Mean 85 11/03/18 18:30 Blood Pressure Position Sitting 11/03/18 15:36 Pulse Oximetry 91 L 11/07/18 04:04 Respiratory End-tidal CO2 42 11/04/18 23:16 Oxygen Delivery Method Room Air 11/07/18 04:04 Oxygen Flow Rate 0 11/07/18 04:04 Pain Level 0 11/06/18 23:30 Comment 11/04/18 18:29 Intake & Output 11/06/18 11/07/18 11/07/18 18:59 06:59 18:59 Intake Total 2871.666 / 2921.666 50 / 2921.666 Output Total 200 / 1000 800 / 1000 Balance 2671.666 / 1921.666 -750 / 1921.666 Intake: IV 2391.666 / 2441.666 50 / 2441.666 Oral 480 / 480 Output: Urine 200 / 1000 800 / 1000 Other: Urine Color Dark Giovana Dark Giovana Urine Appearance Clear Urine Odor Strong Stool Size Small Stool Characteristics Soft Voiding Methods Toilet Urinal Laboratory Results WBC 10.29 k/cumm (4.4-10.8) D 11/06/18 07:05 RBC 3.69 m/cumm (4.50-6.00) L 11/06/18 07:05 Hgb 11.3 g/dL (13.5-17.5) L 11/06/18 07:05 Hct 35.0 % (40.0-50.0) L 11/06/18 07:05 MCV 94.9 fL (80-95) 11/06/18 07:05 MCH 30.6 pg (27.0-33.0) 11/06/18 07:05 MCHC 32.3 g/dL (32.0-36.0) 11/06/18 07:05 RDW 13.4 % (11.8-14.1) 11/06/18 07:05 Plt Count 162 x1000/uL (130-400) 11/06/18 07:05 MPV 10.9 fL (8.0-11.0) 11/06/18 07:05 Immature Gran % 0.2 11/06/18 07:05 Neutrophils % 79.7 11/06/18 07:05 Lymphocytes % 10.6 11/06/18 07:05 Monocytes % 8.4 11/06/18 07:05 Eosinophils % 1.0 11/06/18 07:05 Basophils % 0.1 11/06/18 07:05 Absolute Neutrophils 8.20 k/cumm (1.2-6.7) H 11/06/18 07:05 Absolute Lymphocytes 1.09 k/cumm (1.2-3.4) L 11/06/18 07:05 Absolute Monocytes 0.86 k/cumm (0.11-0.7) H 11/06/18 07:05 Absolute Eosinophils 0.10 k/cumm (0.0-0.7) 11/06/18 07:05 Absolute Basophils 0.01 k/cumm (0.0-0.2) 11/06/18 07:05 PT 10.1 sec (9.3-11.0) 11/03/18 15:43 INR 1.0 (0.9-1.1) 11/03/18 15:43 APTT 22.4 sec (21.0-31.4) 11/03/18 15:43 Sodium 140 mmol/L (136-145) 11/06/18 07:05 Potassium 4.1 mmol/L (3.5-5.1) 11/06/18 07:05 Chloride 103 mmol/L (98-107) 11/06/18 07:05 Carbon Dioxide 29.9 mmol/L (21.0-32.0) 11/06/18 07:05 Anion Gap 7.1 mmol/L (3-11) 11/06/18 07:05 BUN 14 mg/dL (7-18) 11/03/18 15:43 Creatinine 1.10 mg/dL (0.70-1.30) 11/03/18 15:43 Estimated GFR/1.73 m2 >= 60.00 (mL/min/1.73m2) 11/03/18 15:43 Glucose 111 mg/dL (70-100) H 11/03/18 15:43 Calcium 8.9 mg/dL (8.5-10.1) 11/03/18 15:43 Magnesium 2.1 mg/dL (1.8-2.4) 11/06/18 07:05 Total Bilirubin 0.7 mg/dL (0.2-1.0) 11/03/18 15:43 AST 33 U/L (15-37) 11/03/18 15:43 ALT 36 U/L (12-78) 11/03/18 15:43 Alkaline Phosphatase 72 U/L (46-116) 11/03/18 15:43 Troponin I < 0.05 ng/mL (0.00-0.06) 11/06/18 07:05 Total Protein 7.4 g/dL (6.4-8.2) 11/03/18 15:43 Albumin 4.0 g/dL (3.4-5.0) 11/03/18 15:43 Lipase 117 U/L (73-393) 11/03/18 15:43
[2018-11-07 07:55] VITALS: BP 150/77; PULSE 66; RESP 18; TEMP 37.7; O2SAT 93
[2018-11-07] MEDS: Ketorolac 30 MG/ML VIAL IVP (09:05)
[2018-11-07 10:12] LABS: Abs Immature Grans 0.03 k/cumm (0.0-0.09); Absolute Basophil Count 0.01 k/cumm (0.0-0.2); Absolute Eosinophil Count 0.17 k/cumm (0.0-0.7); Absolute Lymphocyte Count 0.81 k/cumm (1.2-3.4); Absolute Monocyte Count 0.76 k/cumm (0.11-0.7); Absolute Neutrophil Count 7.55 k/cumm (1.2-6.7); Basophils % 0.1; Eosinophils % 1.8; HCT 37.6 % (40.0-50.0); HGB 12.3 g/dL (13.5-17.5); Immature Grans % 0.3; Lymphocytes % 8.7; Mean Corp. HGB Concentration 32.7 g/dL (32.0-36.0); Mean Corpuscular Hemoglobin 30.6 pg (27.0-33.0); Mean Corpuscular Volume 93.5 fL (80-95); Mean Platelet Volume 10.3 fL (8.0-11.0); Monocytes % 8.1; Platelet Count 217 x1000/uL (130-400); RBC 4.02 m/cumm (4.50-6.00); White Blood Cell Count 9.33 k/cumm (4.4-10.8)
[2018-11-07 11:25] VITALS: BP 138/81; PULSE 62; RESP 18; TEMP 37.5; O2SAT 95
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
--- NOTE | 2018-11-07 13:41 | W.PM.PROGNOT ---
Date of Service Date of service: 11/07/18 Time of Service: 13:41 Subjective Interval history since last seen: No evidence of Ventricular arrhythmia on tele since the 1 episode yesterday. I think it would be a good idea to avoid fluoroquinolones in this patient - and he should stay on telemetry if still in the hospital for the next 24 hrs, but once cleared from surgical stand point, he can be discharged home with outpatient referral for a Zio patch via PCP (already made by case management). Hospitalists are signing off. Please, reconsult if needed. Objective Objective Clinical Data: Abnormal lab results 11/07/18 Range/Units 09:30 RBC 4.02 L (4.50-6.00) m/cumm Hgb 12.3 L (13.5-17.5) g/dL Hct 37.6 L (40.0-50.0) % Absolute Neutrophils 7.55 H (1.2-6.7) k/cumm Absolute Lymphocytes 0.81 L (1.2-3.4) k/cumm Absolute Monocytes 0.76 H (0.11-0.7) k/cumm Vital Signs Temperature 37.5 C 11/07/18 11:25 Temperature Source Tympanic 11/07/18 11:25 Pulse 62 11/07/18 11:25 Pulse Rhythm Regular 11/07/18 07:41 Pulse 83 11/03/18 18:40 Respiratory Rate 18 11/07/18 11:25 Respiratory Effort 11/07/18 07:41 Respiratory Depth Shallow 11/07/18 07:41 Respiratory Pattern Normal 11/07/18 07:41 Blood Pressure 138/81 11/07/18 11:25 Blood Pressure Mean 85 11/03/18 18:30 Blood Pressure Position Sitting 11/03/18 15:36 Pulse Oximetry 95 11/07/18 11:25 Respiratory End-tidal CO2 42 11/04/18 23:16 Oxygen Delivery Method Room Air 11/07/18 11:25 Oxygen Flow Rate 0 11/07/18 11:25 Pain Level 2 11/07/18 10:05 Comment 11/04/18 18:29 Intake & Output 11/06/18 11/07/18 11/07/18 23:59 11:59 23:59 Intake Total 2621.666 / 3796.666 550 / 550 Output Total 500 / 1400 500 / 500 Balance 2121.666 / 2396.666 50 / 50 Intake: IV 2141.666 / 3316.666 100 / 100 Oral 480 / 480 450 / 450 Output: Urine 500 / 1400 500 / 500 Other: Urine Color Dark Giovana Dark Giovana Urine Appearance Clear Clear Urine Odor Strong Stool Size Small Small Stool Characteristics Soft Brown Voiding Methods Urinal Urinal Laboratory Results WBC 9.33 k/cumm (4.4-10.8) 11/07/18 09:30 RBC 4.02 m/cumm (4.50-6.00) L 11/07/18 09:30 Hgb 12.3 g/dL (13.5-17.5) L 11/07/18 09:30 Hct 37.6 % (40.0-50.0) L 11/07/18 09:30 MCV 93.5 fL (80-95) 11/07/18 09:30 MCH 30.6 pg (27.0-33.0) 11/07/18 09:30 MCHC 32.7 g/dL (32.0-36.0) 11/07/18 09:30 RDW 13.0 % (11.8-14.1) 11/07/18 09:30 Plt Count 217 x1000/uL (130-400) 11/07/18 09:30 MPV 10.3 fL (8.0-11.0) 11/07/18 09:30 Immature Gran % 0.3 11/07/18 09:30 Neutrophils % 81.0 11/07/18 09:30 Lymphocytes % 8.7 11/07/18 09:30 Monocytes % 8.1 11/07/18 09:30 Eosinophils % 1.8 11/07/18 09:30 Basophils % 0.1 11/07/18 09:30 Absolute Neutrophils 7.55 k/cumm (1.2-6.7) H 11/07/18 09:30 Absolute Lymphocytes 0.81 k/cumm (1.2-3.4) L 11/07/18 09:30 Absolute Monocytes 0.76 k/cumm (0.11-0.7) H 11/07/18 09:30 Absolute Eosinophils 0.17 k/cumm (0.0-0.7) 11/07/18 09:30 Absolute Basophils 0.01 k/cumm (0.0-0.2) 11/07/18 09:30 PT 10.1 sec (9.3-11.0) 11/03/18 15:43 INR 1.0 (0.9-1.1) 11/03/18 15:43 APTT 22.4 sec (21.0-31.4) 11/03/18 15:43 Sodium 140 mmol/L (136-145) 11/06/18 07:05 Potassium 4.1 mmol/L (3.5-5.1) 11/06/18 07:05 Chloride 103 mmol/L (98-107) 11/06/18 07:05 Carbon Dioxide 29.9 mmol/L (21.0-32.0) 11/06/18 07:05 Anion Gap 7.1 mmol/L (3-11) 11/06/18 07:05 BUN 14 mg/dL (7-18) 11/03/18 15:43 Creatinine 1.10 mg/dL (0.70-1.30) 11/03/18 15:43 Estimated GFR/1.73 m2 >= 60.00 (mL/min/1.73m2) 11/03/18 15:43 Glucose 111 mg/dL (70-100) H 11/03/18 15:43 Calcium 8.9 mg/dL (8.5-10.1) 11/03/18 15:43 Magnesium 2.1 mg/dL (1.8-2.4) 11/06/18 07:05 Total Bilirubin 0.7 mg/dL (0.2-1.0) 11/03/18 15:43 AST 33 U/L (15-37) 11/03/18 15:43 ALT 36 U/L (12-78) 11/03/18 15:43 Alkaline Phosphatase 72 U/L (46-116) 11/03/18 15:43 Troponin I < 0.05 ng/mL (0.00-0.06) 11/06/18 07:05 Total Protein 7.4 g/dL (6.4-8.2) 11/03/18 15:43 Albumin 4.0 g/dL (3.4-5.0) 11/03/18 15:43 Lipase 117 U/L (73-393) 11/03/18 15:43
[2018-11-07] MEDS: HYDROcodone 5/Acetaminophen 325 TAB PO (14:00)
--- NOTE | 2018-11-07 14:22 | PDOC.CMDIS ---
LACE Index Scoring Tool - Questions: Length of Stay (in days): 3 Acuity (Admit via E.D.?): Yes E.D. Visits: 1 - Answers: Total Score: 7 Risk of Readmission: Low Risk Care Management Discharge Reason for Hospitalization: Pneumoperitoneum Discharge Plan: Edinson will discharge home when ready per MD. CM contacted Edinson's PCP [facility] under the care of Dr. Katie Pack. Clinicals faxed to #[phone] request for Ziopatch monitor. Edinson will follow up with BEATRIS Whitehead 11/15/18@4614. He will transport home via private vehicle with his , Herminia. Patient/Family Education Needs: Review discharge instructions, discuss Ask Me Three.
--- NOTE | 2018-11-07 14:48 | CMDISCH_ITS ---
LACE Index Scoring Tool - Questions: Length of Stay (in days): 3 Acuity (Admit via E.D.?): Yes E.D. Visits: 1 - Answers: Total Score: 7 Risk of Readmission: Low Risk Care Management Discharge Reason for Hospitalization: Pneumoperitoneum Discharge Plan: Edinson will discharge home when ready per MD. CM contacted Edinson's PCP [facility] under the care of Dr. Katie Pack. Clinicals faxed to #[phone] request for Ziopatch monitor. Edinson will follow up with BEATRSI Whitehead 11/15/18@0142. He will transport home via private vehicle with his , Herminia. Patient/Family Education Needs: Review discharge instructions, discuss Ask Me Three.
== END 2018-11-07 14:33 | disposition home or self-care (01) | DRG 330 ==
LOC: ER 18:02 → MS 11-04 15:12
PROVIDERS: Surgery; Admitting Provider Surgery; Emergency Provider Emergency Medicine; Visit Provider Surgery
PROC: 0DQ80ZZ Repair Small Intestine, Open Approach (ICD-10-PCS; CPT 49000; principal; 2018-11-04 20:00)
DX: S36.438A Laceration of other part of small intestine, initial encounter (principal); I47.2 Ventricular tachycardia; S30.1XXA Contusion of abdominal wall, initial encounter; V19.88XA Pedal cyclist (driver) (passenger) injured in other specified transport accidents, initial encounter; Y93.55 Activity, bike riding; T36.8X5A Adverse effect of other systemic antibiotics, initial encounter; T37.8X5A Adverse effect of other specified systemic anti-infectives and antiparasitics, initial encounter
CPT/HCPCS: 44602; 36415; 74177; 80051; 80053; 83690; 85027; 96365; 96375; 99222; 99223; 99231; 99233; 99239; 99253; 99285; NC; 71260; 74022; 83735; 84484; 85025; 85610; 85730; 87070; 87075; 87205; 93005; 93010; 99284; G0378; J0744; J1100; J1450; J1885; J2250; J2405; J2543; J3010; J3475; J3490